=== PATIENT | male | born 1985 | race African-American/Black ===

== ENCOUNTER 2020-06-19 13:35 | Emergency (ER) | payer MEDICAID ==
[~2020-06-19] VITALS: Ht 188 cm; Wt 69.9 kg
[2020-06-19 13:42] VITALS: BP 190/111
--- NOTE | 2020-06-19 13:47 | NUR ---
ED Nurse Note: PATIENT BROUGHT IN BY RA 84 FROM WORK. 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 PATIENT VOMITED 4 TIMES. ACCUCHECK 124. PT. HAS NOT EATEN FOR X 2 DAYS NOW. PATIENT PRESENTED ANXIOUS, SHAKY, STATED " I WANT TO EAT REALLY BAD". PATIENT AAOX4, VSS AT THIS TIME.
[2020-06-19] MEDS ORDERED: Metoclopramide 10mg/2ml Inj IVP ONE (14:00)
[2020-06-19] MEDS ORDERED: DiphenhydrAMINE 50mg/ml Inj IVP ONE (14:00)
--- NOTE | 2020-06-19 14:03 | Emergency Room Report ---
History of Present Illness General Chief Complaint: General Complaint Source: Patient, EMS Present Illness HPI Patient presents via EMS. He nearly passed out that he was working outside and has not eaten for 2 days. A year ago he had a similar problem when he had heat exhaustion. He has been vomiting today. He is vomiting bile - no coffee grounds or hematemesis. He denies any diarrhea. He has not eaten because he has not had any money. He is complaining about bilateral upper abdomen discomfort that 6/10 at this time. It radiates somewhat towards his back. This is worse when he is vomiting. He denies any fevers or chills. He feels weakness. No sore throat, chest pain, palpitations, dysuria, shortness of breath, joint pain, rashes, depression, anxiety, visual changes, dizziness, headache. Patient denies major medical problems. This includes diabetes. 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 Reviewed Nursing Documentation: PMH: Agreed; PSxH: Agreed Nursing Documentation-PM Past Medical History: No History, Except For History Of Psychiatric Problem: Yes - SCHIZOAFFECTIVE Review of Systems All Other Systems: negative except mentioned in HPI Physical Exam Vital Signs Date Time Temp Pulse Resp B/P (MAP) Pulse Ox O2 Delivery O2 Flow Rate FiO2 06/19/20 13:29 98.4 108 20 190/111 (137) 97 Room Air Sp02 EP Interpretation: reviewed, normal General Appearance: well appearing, no apparent distress, GCS 15, other Head: normocephalic, atraumatic Eyes: bilateral eye normal inspection, bilateral eye PERRL, bilateral eye EOMI ENT: moist mucus membranes Neck: full range of motion, supple Respiratory: lungs clear, normal breath sounds Cardiovascular #1: regular rate, rhythm Cardiovascular #2: 2+ radial (R) Gastrointestinal: normal inspection, normal bowel sounds, non tender, no mass, non-distended Musculoskeletal: back normal, normal range of motion, gait/station normal Neurologic: alert, oriented x3 Medical Decision Making Diagnostic Impression: Primary Impression: Heat exhaustion Qualified Codes: T67.5XXA - Heat exhaustion, unspecified, initial encounter Additional Impressions: Renal insufficiency Hypokalemia ER Course Patient presents with near syncope and vomiting after not eating for 2 days and working out in the hot sun. Differential includes heat exhaustion, gastritis, hypoglycemia, electrolyte imbalance, renal failure, pancreatitis, dehydration amongst others. Patient evaluated with labs. Patient treated with aggressive IV hydration, Reglan and Benadryl. In addition he will be given a dose of Pepcid. Labs remarkable for low potassium. White count normal. Slight renal insufficiency. Elevated liver function test. Patient still vomiting. Zofran administered. Patient eating without difficulty. Still feels weak but greatly improved. Discussed findings with patient and the need for outpatient follow-up. Patient stable for outpatient observation and treatment. Laboratory Tests Test 06/19/20 14:06 White Blood Count 5.4 K/UL (4.8-10.8) Red Blood Count 4.97 M/UL (4.70-6.10) Hemoglobin 14.1 G/DL (14.2-18.0) L Hematocrit 43.4 % (42.0-52.0) Mean Corpuscular Volume 87 FL (80-99) Mean Corpuscular Hemoglobin 28.3 PG (27.0-31.0) Mean Corpuscular Hemoglobin Concent 32.5 G/DL (32.0-36.0) Red Cell Distribution Width 13.8 % (11.6-14.8) Platelet Count 389 K/UL (150-450) Mean Platelet Volume 6.1 FL (6.5-10.1) L Neutrophils (%) (Auto) 69.7 % (45.0-75.0) Lymphocytes (%) (Auto) 15.7 % (20.0-45.0) L Monocytes (%) (Auto) 12.2 % (1.0-10.0) H Eosinophils (%) (Auto) 0.0 % (0.0-3.0) Basophils (%) (Auto) 2.5 % (0.0-2.0) H Prothrombin Time 11.3 SEC (9.30-11.50) Prothrombin Time INR 1.0 (0.9-1.1) Activated Partial Thromboplast Time 26 SEC (23-33) Urine Color Pale yellow Urine Appearance Clear Urine pH 7 (4.5-8.0) Urine Specific [place] 1.005 (1.005-1.035) Urine Protein Negative (NEGATIVE) Urine Glucose (UA) Negative (NEGATIVE) Urine Ketones Negative (NEGATIVE) Urine Blood Negative (NEGATIVE) Urine Nitrite Negative (NEGATIVE) Urine Bilirubin Negative (NEGATIVE) Urine Urobilinogen Normal MG/DL (0.0-1.0) Urine Leukocyte Esterase 1+ (NEGATIVE) H Urine RBC 0 /HPF (0 - 0) Urine WBC 2-4 /HPF (0 - 0) Urine Squamous Epithelial Cells Occasional /LPF Urine Bacteria Occasional /HPF (NONE) Urine Mucus Few /LPF (NONE/OCC) H Sodium Level 144 MMOL/L (136-145) Potassium Level 3.1 MMOL/L (3.5-5.1) L Chloride Level 104 MMOL/L (98-107) Carbon Dioxide Level 26 MMOL/L (21-32) Anion Gap 14 mmol/L (5-15) Blood Urea Nitrogen 6 mg/dL (7-18) L Creatinine 1.4 MG/DL (0.55-1.30) H Estimated Glomerular Filtration Rate > 60 mL/min (>60) Glucose Level 84 MG/DL (74-106) Calcium Level 8.6 MG/DL (8.5-10.1) Total Bilirubin 0.6 MG/DL (0.2-1.0) Aspartate Amino Transferase (AST) 130 U/L (15-37) H Alanine Aminotransferase (ALT) 201 U/L (12-78) H Alkaline Phosphatase 78 U/L (46-116) Total Creatine Kinase 446 U/L (26-308) H Troponin I 0.018 ng/mL (0.000-0.056) Total Protein 8.0 G/DL (6.4-8.2) Albumin 4.1 G/DL (3.4-5.0) Globulin 3.9 g/dL Albumin/Globulin Ratio 1.1 (1.0-2.7) Lipase 113 U/L (73-393) Last Vital Signs Date Time Temp Pulse Resp B/P (MAP) Pulse Ox O2 Delivery O2 Flow Rate FiO2 06/19/20 16:37 98.0 78 21 155/87 98 Room Air Status: improved Disposition: HOME, SELF-CARE Condition: Improved Scripts Ondansetron Odt* (ZOFRAN ODT*) 4 Mg Tab.rapdis 4 MG BC EVERY 8 HOURS, #6 TAB 0 Refills Prov: Jae Hilliard MD 06/19/20 Potassium Chloride* (K-DUR*) 10 Meq Capsule.er 10 MEQ ORAL DAILY, #14 TAB 0 Refills Prov: Jae Hilliard MD 06/19/20 Jae Hilliard MD Jun 19, 2020 14:03
[2020-06-19 14:30] LABS: APPEARANCE,URINE CLEAR; BASOPHILS % (AUTO) 2.5 % (0.0-2.0); BILIRUBIN, URINE NEGATIVE (NEGATIVE); COLOR,URINE PALE YELLOW; GLUCOSE, URINE (UA) NEGATIVE (NEGATIVE); HEMATOCRIT 43.4 % (42.0-52.0); HEMOGLOBIN 14.1 G/DL (14.2-18.0); KETONES,URINE NEGATIVE (NEGATIVE); LEUKOCYTE ESTERASE ,URINE 1+ (NEGATIVE); LYMPHOCYTES % (AUTO) 15.7 % (20.0-45.0); MEAN CORPUSCULAR VOLUME 87 FL (80-99); MONOCYTES % (AUTO) 12.2 % (1.0-10.0); NEUTROPHILS % (AUTO) 69.7 % (45.0-75.0); NITRITE,URINE NEGATIVE (NEGATIVE); PH,URINE 7 (4.5-8.0); PLATELET COUNT 389 K/UL (150-450); PROTEIN,URINE NEGATIVE (NEGATIVE); RED BLOOD COUNT 4.97 M/UL (4.70-6.10); RED CELL DISTRIBUTION WIDTH 13.8 % (11.6-14.8); UROBILINOGEN,URINE NORMAL MG/DL (0.0-1.0); WHITE BLOOD COUNT 5.4 K/UL (4.8-10.8)
[2020-06-19 14:39] LABS: ANION GAP 14 mmol/L (5-15); BLOOD UREA NITROGEN 6 mg/dL (7-18); CALCIUM 8.6 MG/DL (8.5-10.1); CARBON DIOXIDE 26 MMOL/L (21-32); CHLORIDE 104 MMOL/L (98-107); CREATININE 1.4 MG/DL (0.55-1.30); POTASSIUM 3.1 MMOL/L (3.5-5.1); SODIUM 144 MMOL/L (136-145)
[2020-06-19 14:44] LABS: ALANINE AMINOTRANSFERASE 201 U/L (12-78); ALBUMIN 4.1 G/DL (3.4-5.0); ALBUMIN/GLOBULIN RATIO 1.1 (1.0-2.7); ALKALINE PHOSPHATASE 78 U/L (46-116); ASPARTATE AMINO TRANSFERASE 130 U/L (15-37); BILIRUBIN,TOTAL 0.6 MG/DL (0.2-1.0); CREATINE KINASE 446 U/L (26-308)
--- NOTE | 2020-06-19 15:59 | NUR ---
ED Nurse Note: patient was able to ambulate to the bathroom with steady gait
[2020-06-19] MEDS ORDERED: POTASSIUM CHLO10 MEQ ORAL (16:16)
[2020-06-19] MEDS ORDERED: ONDANSETRON ODT4 MG BC (16:16)
[2020-06-19 16:37] VITALS: BP 155/87
--- NOTE | 2020-06-19 16:37 | NUR ---
ER DISCHARGE NOTE: Patient is cleared to be discharged per ERMD, pt is aox4, on room air, with stable vital signs. pt was given dc and prescription instructions, pt was able to verbalize understanding, pt id band and iv site removed without complications. pt is able to ambulate with steady gait. pt took all belongings.
== END 2020-06-19 16:37 | disposition home or self-care (01) ==
LOC: EDBD 13:35 → EMR 14:24
DX: T67.5XXA Heat exhaustion, unspecified, initial encounter (principal); N28.9 Disorder of kidney and ureter, unspecified; E87.6 Hypokalemia; X58.XXXA Exposure to other specified factors, initial encounter; Y92.9 Unspecified place or not applicable; R79.89 Other specified abnormal findings of blood chemistry
CPT/HCPCS: 36415; 80053; 81003; 82550; 83690; 84484; 85025; 85610; 85730; 96361; 96374; 96375; J1200; J2405; J2765; J7030; S0028; Z7502; 99284